=== PATIENT | male | born 1960 | race Caucasian/White ===

== ENCOUNTER → 2018-07-16 | Outpatient (CLI) | payer MEDICARE, MEDICAID | LOC: COL.VAS 15:00 | DX: Z13.6 Encounter for screening for cardiovascular disorders (principal); M79.89 Other specified soft tissue disorders ==

== ENCOUNTER → 2018-07-24 | Outpatient (CLI) | payer MEDICARE, MEDICAID | LOC: COL.RAD 09:37 | DX: J98.11 Atelectasis (principal); Z20.1 Contact with and (suspected) exposure to tuberculosis ==

== ENCOUNTER → 2019-01-29 | Outpatient (CLI) | payer MEDICARE, MEDICAID | LOC: COL.RAD 10:08 | DX: R10.32 Left lower quadrant pain (principal); Z98.890 Other specified postprocedural states | CPT/HCPCS: Q9967 ==

== ENCOUNTER 2019-10-22 10:30 | Emergency (ER) | payer MEDICARE, MEDICAID ==
[~2019-10-22] VITALS: Ht 175.3 cm; Wt 100.0 kg
[2019-10-22 10:45] VITALS: BP 119/92; TEMP 98.8
[2019-10-22 11:17] LABS: COLLECTION METHOD CLEAN CATCH
[2019-10-22 11:25] LABS: BASO % 0.7 % (0.0-2.0); EOS # 0.1 (0.0-0.7); EOS % 1.6 % (0-4.0); GRAN # 2.7 (1.4-6.5); GRAN % 59.2 % (42.2-75.2); HEMATOCRIT 40.6 % (42.0-52.0); HEMOGLOBIN 13.9 g/dl (13.5-18.0); LYMPH # 1.1 (1.2-3.4); LYMPH % 24.3 % (20.0-51.0); MEAN CELL VOLUME 96 fl (80.0-100.0); MEAN CORPUSCULAR HEMOGLOBIN 33 pg (27.0-31.0); MEAN CORPUSCULAR HGB CONC 34 g/dl (33.0-37.0); MONO # 0.6 (0.1-0.6); MONO % 13.8 % (1.7-9.3); PLATELET COUNT 176 K/mm3 (130-400); RED BLOOD COUNT 4.21 M/mm3 (4.20-5.60); REDCELL DISTRIBUTION WIDTH-CV 13.2 % (11.5-14.5)
[2019-10-22 11:28] LABS: MUCOUS Present /lpf; PH 5 (5-8); SQUAMOUS EPITHELIAL None Seen /hpf; URINE APPEARANCE Clear; URINE BACTERIA None Seen /hpf; URINE BILIRUBIN Negative (NEGATIVE); URINE BLOOD Negative (NEGATIVE); URINE COLOR Yellow; URINE GLUCOSE Negative (NEGATIVE); URINE KETONE Negative (NEGATIVE); URINE LEUKOCYTE ESTERASE Negative (NEGATIVE); URINE NITRATE Negative (NEGATIVE); URINE PROTEIN(semi-quant) Negative (NEGATIVE); URINE RBC 0-2 /hpf; URINE UROBILINOGEN Negative (NEGATIVE)
[2019-10-22 11:44] LABS: ALBUMIN 4.2 gm/dL (3.5-5.0); BILIRUBIN,TOTAL 0.8 mg/dL (0.0-1.0); CALCIUM 9.7 mg/dL (8.4-10.2); CREATININE, serum 0.83 (0.66-1.25); POTASSIUM 4.2 mmol/L (3.4-5.0); TOTAL PROTEIN 7.6 gm/dL (6.4-8.2)
[2019-10-22] MEDS ORDERED: DIFLUCAN200 MG PO (12:41)
[2019-10-22] MEDS ORDERED: DESITIN MAXIMUM S40% TOP (12:41)
[2019-10-22 13:57] VITALS: PULSE 68
== END 2019-10-22 13:15 | disposition home or self-care (01) ==
LOC: COL.ER 10:30
PROVIDERS: Emergency Medicine
DX: B35.6 Tinea cruris (principal); F99 Mental disorder, not otherwise specified

== ENCOUNTER 2019-11-11 10:20 | Emergency (ER) | payer MEDICARE, MEDICAID ==
[~2019-11-11] VITALS: Ht 175.3 cm; Wt 100.0 kg
[~2019-11-11 10:20] MED LIST: DESITIN MAXIMUM S40% TOP; DIFLUCAN200 MG PO
[2019-11-11 10:21] VITALS: TEMP 98.5
[2019-11-11 10:54] LABS: BASO % 0.8 % (0.0-2.0); EOS # 0.1 (0.0-0.7); EOS % 1.7 % (0-4.0); GRAN # 1.8 (1.4-6.5); GRAN % 49.7 % (42.2-75.2); HEMATOCRIT 38.3 % (42.0-52.0); HEMOGLOBIN 12.9 g/dl (13.5-18.0); LYMPH # 1.3 (1.2-3.4); LYMPH % 35.8 % (20.0-51.0); MEAN CELL VOLUME 97 fl (80.0-100.0); MEAN CORPUSCULAR HEMOGLOBIN 33 pg (27.0-31.0); MEAN CORPUSCULAR HGB CONC 34 g/dl (33.0-37.0); MEAN PLATELET VOLUME 8.9 fl (7.4-10.4); MONO # 0.4 (0.1-0.6); MONO % 11.7 % (1.7-9.3); PLATELET COUNT 175 K/mm3 (130-400); RED BLOOD COUNT 3.97 M/mm3 (4.20-5.60); REDCELL DISTRIBUTION WIDTH-CV 12.9 % (11.5-14.5)
[2019-11-11 11:01] LABS: ALBUMIN 4.1 gm/dL (3.5-5.0); BILIRUBIN,TOTAL 0.9 mg/dL (0.0-1.0); CALCIUM 9.4 mg/dL (8.4-10.2); CREATININE, serum 0.79 (0.66-1.25); POTASSIUM 3.9 mmol/L (3.4-5.0); TOTAL PROTEIN 7.5 gm/dL (6.4-8.2)
[2019-11-11 11:30] VITALS: BP 119/80; PULSE 82
== END 2019-11-11 11:39 | disposition home or self-care (01) ==
LOC: COL.ER 10:20
PROVIDERS: Nurse Practitioner Primary Care
DX: S22.42XA Multiple fractures of ribs, left side, initial encounter for closed fracture (principal); K80.20 Calculus of gallbladder without cholecystitis without obstruction; V49.50XA Passenger injured in collision with unspecified motor vehicles in traffic accident, initial encounter; Y92.9 Unspecified place or not applicable
CPT/HCPCS: Q9967

== ENCOUNTER 2020-08-01 17:48 | Emergency (ER) | payer MEDICARE, MEDICAID ==
[~2020-08-01] VITALS: Ht 180.3 cm; Wt 100.0 kg
[2020-08-01 18:05] VITALS: PULSE 70; TEMP 98
[2020-08-01] MEDS ORDERED: MOBIC 7.5MG7.5 MG PO (18:25)
== END 2020-08-01 18:43 | disposition home or self-care (01) ==
LOC: COL.ER 17:48
DX: M25.562 Pain in left knee (principal); M79.662 Pain in left lower leg; Z87.891 Personal history of nicotine dependence; Z88.8 Allergy status to other drugs, medicaments and biological substances

== ENCOUNTER → 2022-01-26 | Outpatient (CLI) | payer MEDICARE, MEDICAID ==
[~2022-01-26] MED LIST changes: +MOBIC 7.5MG7.5 MG PO
== END ==
LOC: COL.RAD 12:27
DX: G24.01 Drug induced subacute dyskinesia (principal); R53.1 Weakness; R41.89 Other symptoms and signs involving cognitive functions and awareness; Z86.69 Personal history of other diseases of the nervous system and sense organs

== ENCOUNTER 2022-08-21 10:50 | Outpatient (RCR) | payer MEDICARE, MEDICAID | END 2022-08-29 | disposition home or self-care (01) | LOC: WSST | DX: F89 Unspecified disorder of psychological development (principal) ==

== ENCOUNTER 2023-08-28 13:45 | Outpatient (RCR) | payer MEDICARE, MEDICAID | END 2023-08-30 | LOC: MKS.ESL.OT | DX: F81.9 Developmental disorder of scholastic skills, unspecified (principal); G24.01 Drug induced subacute dyskinesia; Z86.69 Personal history of other diseases of the nervous system and sense organs ==

== ENCOUNTER 2023-09-11 13:45 | Outpatient (RCR) | payer MEDICARE, MEDICAID | END 2023-09-29 | disposition home or self-care (01) | LOC: MKS.ESL.OT | DX: G24.01 Drug induced subacute dyskinesia (principal); Z87.898 Personal history of other specified conditions ==